=== PATIENT | female | born 1980 | race Caucasian/White ===

== ENCOUNTER 2018-07-08 08:12 | Emergency (ER) | payer OTHER ==
[~2018-07-08] VITALS: Ht 162.6 cm; Wt 169.0 kg
[~2018-07-08 08:12] MED LIST: BIRTH CONTROL; CETI1TAB7 PO
--- NOTE | 2018-07-08 08:36 | PHYS DOC ---
Past History Past Medical History: Anxiety, Asthma, Depression, Migraines Past Surgical History: Cholecystectomy, Hysterectomy, Other Alcohol Use: Occasionally Drug Use: None Adult General Chief Complaint Chief Complaint: HEADACHE HPI HPI 38-year-old female presents with headache. She states this is day 4 of her headache. It is a frontal headache that is throbbing in nature. It has gotten so she presents to the emergency room. She now has nausea and photophobia. She has tried ibuprofen and Tylenol. She has a history of migraine headaches that were similar, but she has not had migraines for the last few years. She is unsure of anything that would've triggered this headache. She does have occasional daily headaches after drinking too much coffee, but these self resolve normally. She denies vomiting. The patient did have dysuria for 1 day 2 days ago but that seems to have resolved. Review of Systems Review of Systems Constitutional: Denies fever or chills [] Eyes: Denies change in visual acuity, redness, or eye pain [] HENT: Denies nasal congestion or sore throat [] Respiratory: Denies cough or shortness of breath [] Cardiovascular: No additional information not addressed in HPI [] GI: Denies abdominal pain, nausea, vomiting, bloody stools or diarrhea [] : Denies dysuria or hematuria [] Musculoskeletal: Denies back pain or joint pain [] Integument: Denies rash or skin lesions [] Neurologic: Headache. Denies focal weakness or sensory changes [] Endocrine: Denies polyuria or polydipsia [] All other systems were reviewed and found to be within normal limits, except as documented in this note. Current Medications Current Medications Current Medications Medications (Trade) Dose Ordered Sig/Melany Start Time Stop Time Status Last Admin Dose Admin Diphenhydramine HCl (Benadryl) 25 mg 1X ONCE 07/08/18 08:30 07/08/18 08:31 UNV Ketorolac Tromethamine (Toradol 30mg Vial) 30 mg 1X ONCE 07/08/18 08:30 07/08/18 08:31 UNV Metoclopramide HCl (Reglan Vial) 10 mg 1X ONCE 07/08/18 08:30 07/08/18 08:31 UNV Sodium Chloride 1,000 ml @ 1,000 mls/hr 1X ONCE 07/08/18 08:30 07/08/18 09:29 UNV Allergies Allergies Allergies Coded Allergies Type Severity Reaction Last Updated Verified amoxicillin Allergy Intermediate rash 12/19/15 Yes Physical Exam Physical Exam Constitutional: Well developed, well nourished, no acute distress, non-toxic appearance. [] HENT: Normocephalic, atraumatic, bilateral external ears normal, oropharynx moist, no oral exudates, nose normal. [] Eyes: PERRLA, EOMI, conjunctiva normal, no discharge. Photophobia [] Neck: Normal range of motion, no tenderness, supple, no stridor. [] Cardiovascular:Heart rate regular rhythm, no murmur [] Lungs & Thorax: Bilateral breath sounds clear to auscultation [] Abdomen: Bowel sounds normal, soft, no tenderness, no masses, no pulsatile masses. [] Skin: Warm, dry, no erythema, no rash. [] Back: No tenderness, no CVA tenderness. [] Extremities: No tenderness, no cyanosis, no clubbing, ROM intact, no edema. [] Neurologic: Alert and oriented X 3, normal motor function, normal sensory function, no focal deficits noted. [] Psychologic: Affect normal, judgement normal, mood normal. [] Current Patient Data Vital Signs Vital Signs Date Time Temp Pulse Resp B/P (MAP) Pulse Ox O2 Delivery O2 Flow Rate FiO2 07/08/18 08:20 98.2 72 99 Room Air EKG EKG [] Radiology/Procedures Radiology/Procedures [] Course & Med Decision Making Course & Med Decision Making Pertinent Labs and Imaging studies reviewed. (See chart for details) I will give the patient 1 L normal saline, 30 mg Toradol IV, 10 mg Reglan IV, 25 mg Benadryl by mouth. The patient's pain improved minimally. I gave her a second dose of Reglan and now IV Benadryl. Her labs are unremarkable. Her urine analysis is negative for infection. The patient's headache is now improved greater than 50%. She is stable for discharge at this time. [] Dragon Disclaimer Dragon Disclaimer This electronic medical record was generated, in whole or in part, using a voice recognition dictation system. Departure Departure: Referrals: TATY SELLERS (PCP) PHUC MCDANIEL DO Jul 08, 2018 08:36
[2018-07-08] MEDS: diphenhydrAMINE HCL 25 MG CAPSULE PO ONE (08:54)
[2018-07-08] MEDS: KETOROLAC 30 MG/ML VIAL. IV ONE (08:54)
[2018-07-08] MEDS: METOCLOPRAMIDE HCL 10 MG/2 ML VIAL. IV ONE ×2 (08:55→10:52)
[2018-07-08] MEDS: IV NORMAL SALINE 1,000ML 1,000 ML IV ONE (08:55)
[2018-07-08 09:27] LABS: BASO # 0.1 x10^3/uL (0.0-0.2); BASO % 1 % (0-3); EOS # 0.3 x10^3/uL (0.0-0.7); EOS % 4 % (0-3); HEMATOCRIT 41.5 % (36.0-47.0); HEMOGLOBIN 13.5 g/dL (12.0-15.5); LYMPH # 1.9 x10^3/uL (1.0-4.8); LYMPH % 24 % (24-48); MEAN CORPUSCULAR HEMOGLOBIN 26 pg (25-35); MEAN CORPUSCULAR HGB CONC 32 g/dL (31-37); MEAN CORPUSCULAR VOLUME 81 fL (79-100); MONO # 0.5 x10^3/uL (0.0-1.1); MONO % 6 % (0-9); NEUT # 5.1 x10^3uL (1.8-7.7); NEUT % 65 % (31-73); PLATELET COUNT 301 x10^3/uL (140-400); RED BLOOD COUNT 5.11 x10^6/uL (3.50-5.40); RED CELL DISTRIBUTION WIDTH 13.8 % (11.5-14.5); WHITE BLOOD COUNT 7.9 x10^3/uL (4.0-11.0)
[2018-07-08 10:02] LABS: CALCIUM 9.1 mg/dL (8.5-10.1); CREATININE 0.9 mg/dL (0.6-1.0); GFR 70.1; POTASSIUM 4.2 mmol/L (3.5-5.1)
[2018-07-08 10:06] LABS: BACTERIA,URINE 0 /HPF (0-FEW); BILIRUBIN,URINE NEG (NEG); CLARITY,URINE CLEAR; COLOR,URINE YELLOW; GLUCOSE,URINE NEG (NEG); NITRITE,URINE NEG (NEG); RBC,URINE RARE /HPF (0-2); SQUAMOUS EPITHELIAL CELL,UR OCC /LPF; UROBILINOGEN,URINE 0.2 mg/dL (0.2 mg/dL); WBC,URINE RARE /HPF (0-4)
[2018-07-08 10:21] VITALS: BP 153/69
[2018-07-08] MEDS: diphenhydrAMINE 50 MG/ML VIAL IVP ONE (10:52)
== END 2018-07-08 12:30 | disposition home or self-care (01) ==
LOC: ER 08:12
DX: R51 Headache (principal); R11.0 Nausea; H53.143 Visual discomfort, bilateral; F41.9 Anxiety disorder, unspecified; J45.909 Unspecified asthma, uncomplicated; G43.909 Migraine, unspecified, not intractable, without status migrainosus; F32.9 Major depressive disorder, single episode, unspecified; Z88.1 Allergy status to other antibiotic agents
CPT/HCPCS: 36415; 80048; 81001; 85025; 96374; 96375; 96376; 99284; J1200; J1885; J2765; Q0163; J7030